=== PATIENT | female | born 1970 | race Caucasian/White ===

== ENCOUNTER 2018-03-04 12:50 | Emergency (ER) | payer OTHER ==
[2018-03-04 14:35] VITALS: BP 120/69
--- NOTE | 2018-03-04 14:51 | UC ---
UC General HPI - HPI Summary HPI Summary: Patient states that since this morning she has been experiencing frequent urination and bladder pressure. She also notes some constant soreness in left side of her back. She denies any actual burning with urination. She thinks this is a UTI but has had kidney stone in the past. She states she would like her urine dipped to see if it is just this stone they can be treated. She denies any associated fever, chills, as well as nausea, vomiting and diarrhea. She has no signs or symptoms of pelvic infection and no abdominal pain. She denies any history of injury. - History of Current Complaint Chief Complaint: UCGU Stated Complaint: UTI SYMPTOMS Time Seen by Provider: 03/04/18 14:40 Hx Obtained From: Patient Hx Last Menstrual Period: 02/19/18 Onset/Duration: Gradual Onset Pain Intensity: 5 Aggravating: nothing Alleviating: nothing - Allergy/Home Medications Allergies/Adverse Reactions: Allergies Allergy/AdvReac Type Severity Reaction Status Date / Time No Known Allergies Allergy Verified 06/06/15 08:29 PMH/Surg Hx/FS Hx/Imm Hx GI/ History: Kidney Stones Other History Of: Negative For: HIV - Surgical History Surgical History: Yes Surgery Procedure, Year, and Place: , 2002 2008 - Family History Known Family History: Positive: None - Social History Occupation: Employed Full-time Alcohol Use: Occasionally Substance Use Type: None Smoking Status (MU): Never Smoked Tobacco Have You Smoked in the Last Year: No - Immunization History Most Recent Influenza Vaccination: Not the 2014/2015 Season Vaccination Up to Date: Yes Review of Systems Constitutional: Negative Skin: Negative Eyes: Negative ENT: Negative Respiratory: Negative Cardiovascular: Negative Gastrointestinal: Negative Genitourinary: Frequency, Urgency Motor: Negative Neurovascular: Negative Musculoskeletal: Other: - L back soreness Neurological: Negative Psychological: Negative Is Patient Immunocompromised?: No All Other Systems Reviewed And Are Negative: Yes Physical Exam Triage Information Reviewed: Yes Appearance: Well-Appearing Vital Signs: Initial Vital Signs Temp 98.9 F 03/04/18 14:28 Pulse 79 03/04/18 14:28 Resp 14 03/04/18 14:28 BP 120/69 03/04/18 14:28 Pulse Ox 100 03/04/18 14:28 Vital Signs Reviewed: Yes Eyes: Positive: Conjunctiva Clear ENT: Positive: Pharynx normal, TMs normal. Negative: Nasal congestion, Nasal drainage Neck: Positive: Supple, Nontender, No Lymphadenopathy Respiratory: Positive: Lungs clear, Normal breath sounds Abdomen Description: Positive: Nontender, No Organomegaly, Soft. Negative: CVA Tenderness (R), CVA Tenderness (L), Distended, Guarding, Hepatomegaly, Pulsatile Mass, Splenomegaly Bowel Sounds: Positive: Present Musculoskeletal: Positive: Other: - Medications no gross deformity, swelling or discoloration. Cervical, thoracic and lumbar spine are nontender to palpation and range of motion is intact. Neurological: Positive: Alert Psychological: Positive: Age Appropriate Behavior Skin Exam: Normal Skin: Negative: rashes Diagnostics - Laboratory Diagnostic Studies Completed/Ordered: u/a=trace blood, 1+ leuks with culture pending. hcg=neg Course/Dx - Course Course Of Treatment: non toxic. no acute abdomen. u/a= showed some blood and leukocytes thus a uti is possible; however, given her l back discomfort a kidney stone is not 100% excluded. there is no fever or cva tenderness to suggest pyelonephritis. ER transfer offered. pt notes prior hx of stone with some similar s/s's. pt is refusing the transfer citing wants to tx for uti. i advised of risk for worsening, disability and by failing to diagnose and tx an obstructing kideny stone but pt still refused transfer. she agrees to go to the ER for any changes or worsening and will f/u with her pcp in 3 days other cerda. Since she is A&Ox3 and able to make decisions I must respect her wish to go home. not txing a possible uti is not best care for pt thus I will tx with macrobid. - Differential Dx - Multi-Symptom Provider Diagnoses: urinary frequency, bladder pressure, L back pain Discharge - Sign-Out/Discharge Documenting (check all that apply): Patient Departure All imaging exams completed and their final reports reviewed: No Studies - Discharge Plan Condition: Stable Disposition: HOME Prescriptions: Nitrofurantoin Monohyd/M-Cryst [Macrobid 100 mg Capsule] 100 mg PO BID 5 Days # 10 cap Patient Education Materials: Flank Pain (ED), Urinary Urgency and Frequency (DC ) Referrals: GEOVANNA Cardona [Family Provider] - 3 Days Additional Instructions: GO TO THE ER IMMEDIATELY FOR ANY CHANGES OR WORSENING. - Billing Disposition and Condition Condition: STABLE Disposition: Home
== END 2018-03-04 15:14 | disposition home or self-care (01) ==
LOC: UCCORT 12:50
DX: R35.0 Frequency of micturition (principal); Z87.442 Personal history of urinary calculi; R39.89 Other symptoms and signs involving the genitourinary system; M54.9 Dorsalgia, unspecified
CPT/HCPCS: 81003; 84702; 87086; 99212; G0463